=== PATIENT | female | born 1975 | race Caucasian/White ===

== ENCOUNTER → 2020-06-07 09:10 | Outpatient (BNVA) | payer OTHER, SELFPAY | PROVIDERS: Visit Provider Nurse Practitioner Family | DX: Z11.59 Encounter for screening for other viral diseases (principal) | CPT/HCPCS: 87635 ==

== ENCOUNTER → 2022-12-19 11:00 | Outpatient (BNVA) | payer OTHER, SELFPAY | PROVIDERS: Visit Provider Obstetrics & Gynecology | DX: Z12.4 Encounter for screening for malignant neoplasm of cervix (principal) | CPT/HCPCS: 87624 ==

== ENCOUNTER → 2023-01-07 10:55 | Outpatient (BNVA) | payer OTHER, SELFPAY | PROVIDERS: Visit Provider Obstetrics & Gynecology | DX: N85.2 Hypertrophy of uterus (principal) | CPT/HCPCS: 76830 ==

== ENCOUNTER 2023-03-28 13:29 | Outpatient (CLI) | payer OTHER, SELFPAY ==
--- NOTE | 2023-03-28 13:45 | US_ITS ---
WS: [id number] US pelv w/transvag [id number] HISTORY: N85.2 - Hypertrophy of uterus COMPARISON: 01/07/2023 Uterus: 11.2 cm x 6.8 cm x 6.5 cm. Enlarged anteverted uterus. Uterus becomes retroverted on transvaginal imaging. Heterogeneous appeara nce of the myometrium. Loss of the normal junctional zone. Areas of shadowing throughout the myometr ium most consistent with fibroids. There is a large fibroid towards the fundus measuring 5.7 x 4.7 x 7.3 cm. There are additional scattered fibroids throughout the uterus. Endometrium: 2.3 cm. Thickened heterogeneous endometrium. Abnormal endometrium. Endometrium was also enlarged and heterogeneous on the prior study. Right ovary: 4.1 cm x 2.3 cm x 2.1 cm. Normal size and vascularity, no cystic or solid masses. Left ovary: 2.2 cm x 2.7 cm x 2.5 cm. Normal size and vascularity, no cystic or solid masses. Small amount of free fluid in the LEFT adnexa. US/US pelv w/transvag [id number] IMPRESSION: 1. Enlarged heterogeneous uterus. Multiple fibroids are identified. The larges t toward the fundus measures 5.7 x 4.7 x 7.3 cm. 2. Abnormal endometrium. Enlarged heterogeneous endometrium. If biopsy has not been performed this should be obtained to exclude neoplasm.
== END 2023-03-28 13:30 | disposition home or self-care (01) ==
LOC: RAD 13:33
PROVIDERS: Visit Provider Obstetrics & Gynecology
DX: N85.2 Hypertrophy of uterus (principal); D25.9 Leiomyoma of uterus, unspecified
CPT/HCPCS: 76830; 76856

== ENCOUNTER 2023-05-16 08:34 | Day surgery (SDC) | payer OTHER, SELFPAY ==
[2023-05-15 09:49] VITALS: BMI 25.2
--- NOTE | 2023-05-15 13:03 | P.HP_ITS ---
Same Day Surgery H&P Indication for Procedure/HPI DATE OF PROCEDURE: May 16, 2023 CHIEF COMPLAINT/INDICATIONFOR SURGICAL PROCEDURE: multiple fibroids abnormally thickened and heterogeneous endometrium on ultrasound PREOP DIAGNOSIS: multiple fibroids; abnormally thickened and heterogeneous endometrium PLANNED PROCEDURE: Operation Date: 05/16/23 10:20 Proposed Procedures p Hysteroscopy, endometrial sampling, possible endometrial polypectomy with Myosure 59049,R93.89,D25.9(Not Applicable) - Amadou Noe MD s Poss Poylpectomy(Not Applicable) - Amadou Neo MD 47 y.o. Periods normal and regular No bleeding between periods Pelvic sono done? January 07, 2023 ? Uterus ?11.5 x 9.1 x 7.4 cm ? Multiple fibroids, largest 6.3 x 6.5 x 4.8 cm ? Endometrium ?2.4 cm,? heterogeneous,? few cystic areas ? Normal ovaries Now scheduled for hysteroscopy, endometrial sampling, possible endometrial polypectomy PMHx:? brain tumor, Gr II meningioma PSHx:? h/o brain surgery September 2020 ? + seizures ? Followed by [facility] in [place], [place] Medications/Allergies* Home Medications Medication Instructions Recorded Confirmed Type No Known Home Medications 03/14/23 05/15/23 History Allergies/Adverse Reactions Allergy/AdvReac Type Severity Reaction Status Date / Time No Known Allergies Allergy Verified 05/15/23 09:47 Pertinent History/Comorbid Conditions* Family History (Updated 12/28/22 @ 08:35 by Sergo Dunne) Father CAD (coronary artery disease) Father Cancer Mother lung Stroke Father Denies family history of Colon cancer Ovarian cancer Diabetes Heart disease Breast cancer Hypertension Uterine cancer Thyroid disease Social History Smoking and tobacco status: unknown if ever smoked Pertinent Exam Findings alert, oriented x 3, clear to auscultation bilaterally and regular rate & rhythm Recommendations Surgery/Procedure today Other Plans: plan procedure May 16, 2023 Coding Level of Care Code Acute Code for Chg Fwd Diagnoses Time Spent (min) 20
[2023-05-16] VITALS (10 sets, daily range): BP systolic 117–151; BP diastolic 61–77; PULSE 57–78; RESP 12–18; TEMP 36.3–36.8; O2SAT 98–100
--- NOTE | 2023-05-16 09:06 | W.PM.OPSUD ---
Surgery/Procedure H&P Update DATE OF PROCEDURE: May 16, 2023 DATE H&P PERFORMED: 05/15/23 H&P UPDATE INFORMATION: I have reviewed H&P completed within last 30 days, I have examined patient prior to procedure and No changes to prior documentation PREOP DIAGNOSIS: abnormal endometrium on pelvic sono PLANNED PROCEDURE: Operation Date: 05/16/23 10:20 Proposed Procedures p Hysteroscopy, endometrial sampling, possible endometrial polypectomy with Myosure 35427,R93.89,D25.9(Not Applicable) - Amadou Noe MD s Poss Poylpectomy(Not Applicable) - Amadou Noe MD
[2023-05-16] MEDS: scopolamine 1.5 Patch 1 PATCH TRANSDERMA (09:16)
[2023-05-16] MEDS: sodium chloride 0.9% 1,000 ML 30 ML IV (09:20)
--- NOTE | 2023-05-16 09:22 | ANES.PREANE2 ---
Pre-Anesthetic Assessment Height/Weight: Height 1.7 m Weight 73.028 kg Temp Pulse Resp BP Pulse Ox O2 Del Method 98.2 F 64 18 117/71 99 Room Air 05/16/23 08:59 05/16/23 08:59 05/16/23 08:59 05/16/23 08:59 05/16/23 08:59 05/16/23 09:05 Preop Diagnosis: abnormal endometrium on pelvic sono Operation Date: 05/16/23 10:20 Proposed Procedures p Hysteroscopy, endometrial sampling, possible endometrial polypectomy with Myosure 35551,R93.89,D25.9(Not Applicable) - Amadou Noe MD s Poss Poylpectomy(Not Applicable) - Amadou Noe MD Familial anesthetic complications: None Was Beta Mauricio taken within 24 hours: N/A Was Clonidine taken within 24 hours: N/A Last intake: Intake Last Liquid Date 05/15/23 Last Liquid Time 20:30 Last Solid Date 05/15/23 Last Solid Time 20:30 Social No alcohol and No tobacco Exam alert, oriented x 3, clear to auscultation bilaterally and regular rate & rhythm Airway Mallampati: Class II Dentition: full Pulmonary Chronic Obstructive Pulmonary Disease Neuropsych hx meningioma s/p resection, 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 Anesthetic Plan ASA status: 2 Anesthesia: General Risk of > 500 ml blood loss (7ml/kg in children): No Medications/Allergies Home Medications Medication Instructions Recorded Confirmed Last Taken Type No Known Home Medications 03/14/23 05/15/23 Unknown History Allergies Allergy/AdvReac Type Severity Reaction Status Date / Time No Known Allergies Allergy Verified 05/15/23 09:47 Current Medications Generic Name Dose Route Start Last Admin Trade Name Freq PRN Reason Stop Dose Admin Sodium Chloride 1,000 mls @ 30 mls/hr 05/16/23 08:45 05/16/23 09:20 Sodium Chloride 0.9% IV 05/17/23 08:44 30 mls/hr .Q24H COSMO Administration PFSH Anesthesia Family History Mother Cancer lung Father CAD (coronary artery disease) Stroke Denies family history of Colon cancer Ovarian cancer Diabetes Heart disease Breast cancer Hypertension Uterine cancer Thyroid disease Social History Smoking and tobacco status: unknown if ever smoked Data Anesthesia Cardiac Studies: No Data to Display
[2023-05-16 09:45] LABS: OR HCG Qualitative Urine Negative (Negative)
--- NOTE | 2023-05-16 11:30 | ANE.PACU2 ---
Inpatient post-anesthesia follow up: Airway intact: Yes Vital signs: Temperature 97.3 F Pulse Rate 60 Respiratory Rate 18 Blood Pressure 135/61 Pulse Oximetry 100 Oxygen Delivery Me thod Room Air Oxygen Flow Rate 6 Fraction of Inspir ed Oxygen Hydration adequate: Yes Nausea and vomiting: No Pain level: 1 Mental status: Baseline
--- NOTE | 2023-05-16 14:05 | P.OP_ITS ---
Operative Report Date of procedure: May 16, 2023 Pre-op diagnosis: uterine fibroids abnormal endometrium on ultrasound Post-op diagnosis: same Post-op findings: normal endometrial cavity No polyps / fibroids Minimal endometrial tissue Procedure done: hysteroscopy Curettage of uterus Implants: none Specimens removed/disposition: endometrial tissue Surgeon: Amadou Noe MD Anesthesia: MAC Estimated blood loss (mL): 0 Complications: none Brief History: 47 y.o. Pelvic sono done January 07, 2023 Uterus 11.5 x 9.1 x 7.4 cm Multiple fibroids, largest 6.3 x 6.5 x 4.8 cm Endometrium 2.4 cm, heterogeneous, few cystic areas Normal ovaries patient was then scheduled for hysteroscopy, endometrial sampling, possible endometrial polypectomy Procedure: Informed consent signed. Patient was taken to the operating room. Anesthesia was induced. Patient was placed in dorsolithotomy position, prepped and draped for hysteroscopy. A bivalve speculum was placed in the vagina. The anterior lip of the cervix was grasped with a sharp-toothed tenaculum. The cervix was serially dilated with Hegar dilators. . A hysteroscope was placed into the endometrial cavity. The endometrial cavity was seen to be normal. There were no polyps or fibroids. There was a minimal amount of endometrial tissue. The hysteroscope was then removed. Endometrial curettage was done with a sharp curette. Endometrial ti ssue was sent to pathology. The sharp-toothed tenaculum was removed. There was no bleeding from the endometrial cavity or cervix. The patient was then placed supine and awakened and taken to the PACU. Postop condition: stable EBL: none Sponge and instruments counts were normal x 2 Complications: none
== END 2023-05-16 11:35 | disposition home or self-care (01) ==
PROVIDERS: Anesthesiology; PCP Physician Assistant; Visit Provider Obstetrics & Gynecology
PROC: 0UDB8ZZ Extraction of Endometrium, Via Natural or Artificial Opening Endoscopic (ICD-10-PCS; CPT 58558; principal; 2023-05-16 10:10)
DX: D25.9 Leiomyoma of uterus, unspecified (principal); R93.89 Abnormal findings on diagnostic imaging of other specified body structures
CPT/HCPCS: 58558; 81025; 84703; 88305; J1100; J1200; J2250; J2405; J2704; J3010; J3490; J7030